=== PATIENT | male | born 1985 | race Caucasian/White ===

== ENCOUNTER 2020-08-11 19:58 | Inpatient (IN) | payer MEDICAID, SELFPAY ==
[2020-08-11 20:02] VITALS: BP 151/93; PULSE 100; RESP 15; TEMP 37.1; O2SAT 99; BMI 35.9
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
--- NOTE | 2020-08-11 20:32 | ED.PSYCH ---
HPI - Psych General Chief Complaint: Psychiatric Symptoms Stated Complaint: SI Source: patient, family and EMS Mode of arrival: ambulatory Limitations: no limitations History of Present Illness HPI Narrative: Patient presents to ED for SI ideation. Patient went stop taking heroin in [place] since last Wednesday. Patient states he is tired of the drug use and went cold turkey. Patient himself presently denies having any suicidal homicidal thoughts, but when was called she states patient tried to take the keys of his truck so he could drive off the [place]. states patient has been severely depressed due to his addiction to drug use. Patient has strong family history of drug abuse. states patient has had suicidal thoughts in the past but never actually tried to kill himself. She was concerned so she brought patient to the ED. MD complaint: suicidal ideation Related Data Allergies Allergy/AdvReac Type Severity Reaction Status Date / Time No Known Allergies Allergy Unverified 04/18/20 17:17 [No Known Allergies*] Review of Systems Review of Systems: Yes all other systems are reviewed and are negative Constitutional: Constitutional: Reports as per HPI and Reports no additional constitutional complaints Eyes: Eyes: Reports as per HPI and Reports no additional eye complaints ENT: Reports system reviewed and no additional complaints, except as documented and Reports as per HPI Cardiovascular: Cardiovascular: Reports as per HPI and Reports no additional cardiovascular complaints Respiratory: Respiratory: Reports as per HPI and Reports no additional respiratory complaints Gastrointestinal: Gastrointestinal: Reports as per HPI and Reports no additional gastrointestinal complaints Genitourinary: Genitourinary: Reports no additional male genitourinary complaints and Reports as per HPI Musculoskeletal: Musculoskeletal: Reports no additional musculoskeletal complaints and Reports as per HPI Neurologic: Reports system reviewed and no additional complaints, except as documented and Reports as per HPI Psychiatric: Psychiatric: Reports no additional psychiatric complaints and Reports as per HPI PMFSH Social History Social History Alcohol intake: former Smoking Status: Former smoker Smoked in Last 30 Days: No Use of substances other than those prescribed or required for medical reasons: Yes Substance Use Type: Heroin Substance Use Type Other:: PCP Substance Use Frequency: Chronic Longstanding Last Used Substance: Weeks (ago) Any prior treatment program specific to substance use: Yes Advance Directives: No Physical Exam Vital Signs: Vital Signs: Last Vital Signs Temp 97.9 F 08/11/20 22:09 Pulse 80 08/11/20 22:09 Resp 16 08/11/20 22:09 BP 130/76 08/11/20 22:09 Pulse Ox 100 08/11/20 22:09 Body Mass Index 35.9 Const: General: cooperative, healthy appearing, comfortable, no acute distress, well developed, alert, awake and Physically active Orientation/consciousness: patient oriented x3 HENMT: Head: Yes normal to inspection and Yes No palpable skull fracture present Eyes: General: appearance normal, both eyes and all related structures Neck: Neck: Yes normal visual inspection, Yes full ROM, Yes no lymphadenopathy, Yes no meningeal signs, Yes trachea midline, Yes supple and No tender Chest: Chest palpation & inspection: normal inspection of the chest and normal palpation of entire chest wall Resp: Effort & Inspection: normal respiratory effort and able to speak in complete sentences Auscultation: clear to auscultation bilaterally Cardio: Jugular venous distension: no JVD Heart sounds: S1 normal heart sound present and S2 normal heart sound present GI: Inspection: Yes normal to inspection and No abdominal wall ecchymosis Palpation (GI): Soft to palpation, not firm, nontender and no guarding : General: No CVA tenderness and Yes no CVA tenderness Back/Spine/Pelvis: Back: no CVA tenderness, No CVA tenderness and No back tenderness Skin: General skin exam: no rashes or lesions noted and elasticity normal Neuro: General: patient oriented x3, no meningeal signs and CN's II-XI intact bilaterally Cranial nerves: Yes CN's II-XII intact bilaterally Extrem: General: Yes normal to inspection and Yes full ROM Psych: Other: Patient is depressed Appearance: grossly normal and not disheveled Course Course Course Narrative: Spoke with patient's was very concerned about her 's safety. She feels she that he wanted to commit suicide at due to his addiction to drugs. Plan is to do labs and [facility] crisis evaluation. Reevaluation(s) Reevaluation #1: Patient medically cleared. Patient seen and evaluated by [facility]. Patient is Section 12 for bed search. Time: 01:31 MDM - Psych MDM Narrative Medical decision making narrative: Depression Restraints Face to Face Assessment: Face to Face Assessment: Current Situation: After assessment of the patient, a review of the pertinent medical record and a discussion with nursing staff, I feel the patient requires a restrain intervention. Reaction To: [] Medical Condition: [] Behavioral State: [] Continued Need: [] Lab Data Result diagrams: 08/11/20 21:12 08/11/20 21:12 Labs: Lab Results 08/11/20 08/11/20 08/11/20 Range/Units 21:12 21:12 21:12 WBC 12.9 H (4.8-10.8) X10*3/uL RBC 5.53 (4.60-5.80) X10*6/uL Hgb 15.0 (14.0-18.0) g/dl Hct 46.0 (42-52) % MCV 83.2 (80-98) fL MCH 27.1 (27.0-33.0) pg MCHC 32.6 (31.0-36.0) g/dl RDW 13.4 (11.0-16.0) % Plt Count 345 (160-400) X10*3/uL MPV 8.7 L (9.4-12.4) fL Immature Gran % (Auto) 0.6 H (0.0-0.4) % Neut % (Auto) 66.9 (45-73) % Lymph % (Auto) 24.1 (20-40) % [place] % (Auto) 7.8 (2-11) % Eos % (Auto) 0.2 (0-4) % Baso % (Auto) 0.4 (0-2) % Lymph # (Auto) 3.1 (1.2-4.9) X10*3/uL [place] # (Auto) 1.0 (0.1-1.2) X10*3/uL Eos # (Auto) 0.0 (0.0-0.4) X10*3/uL Baso # (Auto) 0.1 (0.0-0.2) X10*3/uL Abs Immat Gran (auto) 0.08 H (0.00-0.03) X10*3/uL Absolute Neuts (auto) 8.6 H (2.0-8.3) X10*3/uL Absolute Nucleated RBC 0.000 (0.0-0.012) X10*3/uL Nucleated RBC % (auto) 0.0 (0.0-0.2) /100WBC Sodium 145 (135-145) mmol/L Potassium 4.3 (3.3-5.1) mmol/l Chloride 106 (96-108) mmol/L Carbon Dioxide 26 (22-29) mmol/L Anion Gap 17 (12-20) BUN 19 H (9-16) mg/dL Creatinine 1.12 (0.5-1.4) mg/dL Estim Creat Clear Calc 116.0 Estimated GFR > 60 Random Glucose 99 (60-115) mg/dL Calcium 9.6 (8.4-10.2) mg/dL Total Bilirubin 0.6 (0.0-1.0) mg/dL Direct Bilirubin 0.2 (0.0-0.5) mg/dL AST 20 (5-37) U/L ALT 32 (0-40) U/L Alkaline Phosphatase 119 H (39-117) U/L Total Protein 7.6 (6.5-8.0) g/dL Albumin 4.9 (3.5-5.0) g/dL Urine Opiates Screen Not Detected (Not Detect) Ur Barbiturates Screen Not Detected (Not Detect) Ur Phencyclidine Scrn POSITIVE H (Not Detect) Ur Amphetamines Screen Not Detected (Not Detect) U Benzodiazepines Scrn Not Detected (Not Detect) Urine Cocaine Screen Not Detected (Not Detect) U Marijuana (THC) Screen POSITIVE H (Not Detect) Discharge Plan Discharge Clinical Impression: Depression
[2020-08-11 21:26] LABS: Basophils Absolute Auto 0.1 X10*3/uL (0.0-0.2); Basophils Percent Auto 0.4 % (0-2); Eosinophils Percent Auto 0.2 % (0-4); Imm Gran Abs Auto 0.08 X10*3/uL (0.00-0.03); Imm Gran Pct Auto 0.6 % (0.0-0.4); Lymphocytes Absolute Auto 3.1 X10*3/uL (1.2-4.9); Lymphocytes Percent Auto 24.1 % (20-40); Mean Corpuscular HGB Conc 32.6 g/dl (31.0-36.0); Mean Corpuscular Hemoglobin 27.1 pg (27.0-33.0); Mean Corpuscular Volume 83.2 fL (80-98); Mean Platelet Volume 8.7 fL (9.4-12.4); Monocytes Percent Auto 7.8 % (2-11); Neutrophils Absolute Auto 8.6 X10*3/uL (2.0-8.3); Neutrophils Percent Auto 66.9 % (45-73); Platelet Count 345 X10*3/uL (160-400); Red Blood Count 5.53 X10*6/uL (4.60-5.80); Red Cell Distribution Width 13.4 % (11.0-16.0); White Blood Count 12.9 X10*3/uL (4.8-10.8)
[2020-08-11 21:27] LABS: MANUAL DIFF FLAG NO
[2020-08-11 21:48] LABS: Alanine Aminotransferase 32 U/L (0-40); Albumin Level 4.9 g/dL (3.5-5.0); Alkaline Phosphatase 119 U/L (39-117); Amphetamine Screen Urine Not Detected (Not Detect); Anion Gap 17 (12-20); Aspartate Amino Transferase 20 U/L (5-37); Barbiturates, Urine Not Detected (Not Detect); Benzodiazepines Screen Urine Not Detected (Not Detect); Bilirubin Direct 0.2 mg/dL (0.0-0.5); Bilirubin Total 0.6 mg/dL (0.0-1.0); Blood Urea Nitrogen 19 mg/dL (9-16); Calcium 9.6 mg/dL (8.4-10.2); Cannabinoid Screen Urine POSITIVE (Not Detect); Carbon Dioxide 26 mmol/L (22-29); Chloride 106 mmol/L (96-108); Cocaine Screen Urine Not Detected (Not Detect); Estimated Glomerular Filt Rate > 60; Glucose Random 99 mg/dL (60-115); Opiate Screen Urine Not Detected (Not Detect); Phencyclidine Screen Urine POSITIVE (Not Detect); Potassium 4.3 mmol/l (3.3-5.1); Sodium 145 mmol/L (135-145); Total Protein 7.6 g/dL (6.5-8.0)
[2020-08-11 22:09] VITALS: BP 130/76; PULSE 80; RESP 16; TEMP 36.6; O2SAT 100
--- NOTE | 2020-08-11 23:23 | PC.NURSE ---
[facility]LER faxed and called. Spoke with Sharri who stated clinician was leaving soon to see the PT.
[2020-08-12] VITALS (7 sets, daily range): BP systolic 109–136; BP diastolic 50–90; PULSE 73–80; RESP 16–20; TEMP 36.5–37; O2SAT 95–97; BMI 35.9
--- NOTE | 2020-08-12 00:17 | PC.NURSE ---
BHN at bed side.
--- NOTE | 2020-08-12 00:36 | PC.NURSE ---
PT stated that he cut out heroin cold turkey one week ago. Now exhibiting withdrawal symptoms but does not want medication to treat it. PT is a being monitored with [facility]. Provider notified.
--- NOTE | 2020-08-12 01:59 | PC.NURSE ---
PT is dry heaving and spitting out small amounts of bile and saliva. PT offered zofran for nausea but refused because he does not want any form of medications to help with detox .
--- NOTE | 2020-08-12 05:26 | PC.NURSE ---
PT is unable to sleep. Continues to have NVD. Appears to be in severe discomfort. Still refusing comfort meds. Continues to insist that he needs a line for saline infusion.
--- NOTE | 2020-08-12 07:16 | PC.NURSE ---
Report received from NAINA Forte. Pt resting, resp unlabored.
--- NOTE | 2020-08-12 07:50 | PC.NURSE ---
Pt awake, alert. Continues to report nausea. Declining medications for it, stating that he felt he was just swapping one drug for another.
--- NOTE | 2020-08-12 08:11 | PC.NURSE ---
A Emma aware pt nausea vomitting
[2020-08-12] MEDS: 0.9 % Sodium Chloride 1,000 ML 999 ML IV (08:36)
--- NOTE | 2020-08-12 08:44 | PC.NURSE ---
IV access established by NAINA Zaidi. Fluids running as requested by pt.
--- NOTE | 2020-08-12 09:36 | PC.NURSE ---
IV completed, pt continues w/ chills, diarrhea but does not want any medications. Will reassess w/ pt in an hour. Pt reports he has not vomited since last night.
--- NOTE | 2020-08-12 10:20 | PC.NURSE ---
No further vomiting. IV removed.
--- NOTE | 2020-08-12 11:16 | PC.NURSE ---
Pt pleasant, denies any further vomiting, reports a few episodes of diarrhea.
[2020-08-12 11:36] LABS: COVID-19 Test Negative (Negative)
--- NOTE | 2020-08-12 13:05 | PC.NURSE ---
pt awake, eating lunch, states he is feeling much better.
--- NOTE | 2020-08-12 15:34 | PC.NURSE ---
Report given to NAINA fu on M5
--- NOTE | 2020-08-12 16:35 | PC.NURSE ---
Care team in to transfer pt to M5. Pt alert, in agreement w/ plan. No concerns reported.
--- NOTE | 2020-08-12 17:23 | PC.ADMIT ---
Pt is a 35 year old male who presented to [facility] with his on 08/12/2020. Pt had make suicidal statements, reporting that he wants to be done with himself . Pt made a plan that he would kill himself with his truck. Pt stated that he does not want to live like this anymore. Pt reports that he has been having poor appetite and sleep due to Heroin withdrawals, however, sleep and eating are improving. Pt began taking PCP when he got off of Heroin 6 days ago. Pt said he began to hallucinate and act out. He told his he needed help or he was going to end up . Pt feels as if there is no help out there for his addiction and he has been struggling as an addict for way to long . Pt does not have a primary care provider, therapist, or pharmacy. He has no known allergies. Pt says he will not take any medication because that is supplementing one drug for another . Pt appears calm and cooperative upon admission. Pt is alert and oriented x4. Pt denies current SI/HI. Pt declines auditory and visual hallucinations. Pt says he will reach out to staff if he is having thoughts of harming himself or others. He is a former smoker. Pt is aware of unit policies. Pt reported that he will only eat vegetables and fruit while he is here unless the food is organic. Pt has been oriented to the unit and has been assigned to room 516-1. Pt is currently sleeping in his room.
[2020-08-13] MEDS: Magnesium Hydrox/Alum Hydrox 30 ML ORAL.SUSP PO ×2 (03:37→09:29)
[2020-08-13 06:15] VITALS: BP 118/71; PULSE 72; RESP 18; TEMP 36.9; O2SAT 96
[2020-08-13 08:58] LABS: Alanine Aminotransferase 33 U/L (0-40); Albumin Level 4.7 g/dL (3.5-5.0); Alkaline Phosphatase 107 U/L (39-117); Anion Gap 15 (12-20); Aspartate Amino Transferase 20 U/L (5-37); Bilirubin Total 0.7 mg/dL (0.0-1.0); Blood Urea Nitrogen 21 mg/dL (9-16); Calcium 9.2 mg/dL (8.4-10.2); Carbon Dioxide 25 mmol/L (22-29); Chloride 108 mmol/L (96-108); Cholesterol 182 mg/dL; Creatinine Clr Calc Pharmacy 121.5; Estimated Glomerular Filt Rate > 60; Glucose Fasting 104 mg/dL (60-99); HDL Cholesterol 38 mg/dL; LDL Cholesterol Calculated 123 mg/dl; Potassium 4.1 mmol/l (3.3-5.1); Sodium 144 mmol/L (135-145); Total Protein 7.3 g/dL (6.5-8.0); Triglycerides 109 mg/dL
[2020-08-13 09:20] LABS: TSH reflex Free T4 0.69 mIU/mL (0.32-4.0)
[2020-08-13 09:29] LABS: Folate 18.6 ng/mL (> or = 4.0); Vitamin B12 571 pg/mL (200-900)
[2020-08-13] MEDS: hydrOXYzine HCL 25 MG TABLET PO (10:37)
[2020-08-13 11:50] VITALS: BP 118/71; PULSE 72
[2020-08-13] MEDS: cloNIDine HCL 0.1 MG TABLET PO ×3 (11:50→20:00)
--- NOTE | 2020-08-13 12:58 | MHC.RECOVRN ---
35 year old male presented to [facility] on 08/11/20 with who stated pt wants ?to be done with himself? and reported pt had plans to drive off a [place] in his truck. Pt admitted to for SI, depression, substance use. T/w met with pt to discuss substance use. Pt states ?I do heroin..or fentanyl now.? Pt states use began 16 years ago and has always been nasal. Pt states ?I?m scared of needles.? Pt reports ?I can?t sleep. I can?t eat. If I can just get something to get over this hump I think I will be good.? Pt reports anxiety is the trigger for use and is hopeful in regards to obtaining a therapist and psychiatrist. Pt denies interest in Suboxone, methadone, naltrexone. Pt states ?I?ve been on Suboxone and methadone. I still used. They don?t work.? When asked about plan for recovery, pt states ?The plan was my truck.? T/w continued to ask if that was still the plan, pt replied ?No.? 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 Pt reports and mom are very supportive of pts recovery and also states ?I have the best friends.? Pt reports all supports do not use substances. Pt received clonidine at 1150 and hydroxyzine at 1037. T/w encouraged pt to give the medications a chance to help reduce anxiety. Pt reports ?I want something stronger. They aren?t working.? T/w informed pt that the provider will be made aware. T/w discussed case with Dr. Steward. Will continue to monitor.
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
[2020-08-13 16:00] VITALS: BP 118/62; PULSE 83; TEMP 36.9
[2020-08-13] MEDS: QUEtiapine Fumarate 50 MG TABLET PO ×2 (16:18→22:13)
[2020-08-13 16:19] VITALS: BP 118/62; PULSE 83
[2020-08-13] MEDS: hydrOXYzine HCL 25 MG TABLET 50 MG PO ×2 (16:19→22:14)
[2020-08-13] MEDS: Loperamide HCl 2 MG CAPSULE PO ×2 (16:19→21:13)
[2020-08-13 20:00] VITALS: BP 128/76; PULSE 86; TEMP 36.4
[2020-08-13] MEDS: traZODone HCL 50 MG TABLET PO (22:13)
[2020-08-14] MEDS: Loperamide HCl 2 MG CAPSULE PO ×2 (04:53→14:37)
[2020-08-14] MEDS: hydrOXYzine HCL 25 MG TABLET 50 MG PO ×2 (04:53→10:18)
[2020-08-14] MEDS: QUEtiapine Fumarate 50 MG TABLET PO ×2 (04:53→10:18)
[2020-08-14 05:00] VITALS: BP 127/77; PULSE 148; RESP 18; TEMP 36.6; O2SAT 99
--- NOTE | 2020-08-14 06:06 | PC.NURSE ---
0600: HR =86 MANUALLY, DOWN FROM 148 AT 0500 BEFORE MEDICATION GIVEN.
[2020-08-14 07:06] VITALS: PULSE 86; RESP 18
--- NOTE | 2020-08-14 09:06 | P.PNPSI_ITS ---
Subjective Subjective Date of Service: 08/14/20 Reason For Visit: SI, depression substance abuse Subjective Notes: Carter Warning and Conditional Voluntary Interim History: Pt seen with clinician Douglas. Pt initially asking to be discharged today. He denies suicidal and homicidal ideation. He initially presented as superficially cooperative and minimizing effects of ongoing substance use. We discussed concerns in terms of safety in that pt although with long hx of substance use feeling more hopeless/helpless, and depressed. We discussed concerns that has in terms of increased depression and suicidal ideation. Pt reports he will not attend substance use treatment but open to psychiatric treatment. He denies VH/AH. Medication Compliance: Yes Side effects from medications: Yes (ortho HOTN with clonidine) Attending Groups: No Review of Systems Cardiovascular: Reports no additional cardiovascular complaints Respiratory: Reports no additional respiratory complaints Gastrointestinal: Reports diarrhea Reports system reviewed and no additional complaints, except as documented and Reports as per HPI Psychiatric: Reports depression and Reports hopelessness Hematologic/Lymphatic: Reports no additional hematologic/lymphatic complaints Mental Status Exam Mental Status Exam Narrative: Appearance:casually groomed, fair hygiene, in NAD Behavior:initially superficially cooperative but increasingly engaging more. Psychomotor: no agitation or retardation noted Speech: clear, normal rate/rythm/volume, spontaneous Mood less depressed Affect: flat, but brightens at times AH/VH: none Delusions: none Insight/judgment: fair-poor Memory/cog: alert, oriented x 3. grossly intact to conversational testing. Diagnostics Vital Signs (24Hr): Vital Signs - 24 hr 08/13/20 11:50 08/13/20 16:00 08/13/20 16:19 Temperature 98.5 F Pulse Rate 72 83 83 Respiratory Rate Blood Pressure 118/71 118/62 118/62 Pulse Oximetry 08/13/20 20:00 08/14/20 05:00 08/14/20 07:06 Temperature 97.5 F 97.8 F Pulse Rate 86 148 H 86 Respiratory Rate 18 18 Blood Pressure 128/76 127/77 Pulse Oximetry 99 Body Mass Index 35.9 Labs Results: 08/11/20 21:12 08/13/20 07:58 Labs: Laboratory Results - last 48 hr 08/12/20 08/13/20 08/13/20 11:03 07:58 07:58 Sodium 144 Potassium 4.1 Chloride 108 Carbon Dioxide 25 Anion Gap 15 BUN 21 H Creatinine 1.07 Estim Creat Clear Calc 121.5 Estimated GFR > 60 Fasting Glucose 104 H Calcium 9.2 Total Bilirubin 0.7 AST 20 ALT 33 Alkaline Phosphatase 107 Total Protein 7.3 Albumin 4.7 Triglycerides 109 Cholesterol 182 LDL Cholesterol, Calc 123 HDL Cholesterol 38 Vitamin B12 571 Folate 18.6 TSH 0.69 COVID-19 ([facility]) Negative COVID-19 Clin Com See Note Medications Medications Current Medications Generic Name Dose Route Start Last Admin Trade Name Freq PRN Reason Stop Dose Admin Acetaminophen 650 mg 08/12/20 16:16 Acetaminophen 325 Mg Tablet PO Q6H PRN Headache/Pain Mild Scale (1-3) Al Hydroxide/Mg Hydroxide 30 ml 08/12/20 16:16 08/13/20 09:29 Magnesium Hydrox/Alum Hydrox 30 Ml Oral.Susp PO 30 ml Q6H PRN Administration Heartburn/Nausea Clonidine HCl 0.1 mg 08/13/20 16:15 08/13/20 20:00 Clonidine Hcl 0.1 Mg Tablet PO 0.1 mg TID RUBEN Administration Protocol Hydroxyzine HCl 50 mg 08/13/20 16:05 08/14/20 04:53 Hydroxyzine Hcl 25 Mg Tablet PO 50 mg Q6H PRN Administration Anxiety Loperamide HCl 2 mg 08/13/20 16:02 08/14/20 04:53 Loperamide Hcl 2 Mg Capsule PO 2 mg Q4H PRN Administration Diarrhea Magnesium Hydroxide 30 ml 08/12/20 16:16 Milk Of Magnesia 30 Ml Oral.Susp PO DAILY PRN Constipation Quetiapine Fumarate 50 mg 08/13/20 16:05 08/14/20 04:53 Quetiapine Fumarate 50 Mg Tablet PO 50 mg Q6H PRN Administration agitation Trazodone HCl 50 mg 08/12/20 21:00 08/13/20 22:13 Trazodone Hcl 50 Mg Tablet PO 50 mg BEDTIME PRN Administration Insomnia Allergies Allergies Allergy/AdvReac Type Severity Reaction Status Date / Time No Known Allergies Allergy Unverified 04/18/20 17:17 [No Known Allergies*] Assessment & Plan Assessment & Plan (1) Opioid abuse with intoxication: Status: Acute Code(s): F11.129 - Opioid abuse with intoxication, unspecified Assessment and Plan: 1. continue prn meds for withdrawal s/s. 2. continue to engage pt in aftercare plan. Pt declines MAT at this time. (2) Depression: Qualifiers: Active/Remission status: currently active Depression Type: major depressive disorder Major depression episode severity: moderate Major depression recurrence: recurrent Qualified Code(s): F33.1 - Major depressive disorder, recurrent, moderate Status: Acute Code(s): F32.9 - Major depressive disorder, single episode, unspecified Assessment and Plan: 1. Pt declined antidepressant medication. He agreed to OP referral and organ recovery coordinator. Greater than 50% of the session was spent on counseling and/or coordination of care Patient educated on: diagnosis, medication risk/benefits, substance abuse, therapeutic strategies and medical condition Informed Consent: understands Reason for contiued inpatient stay Substantial Risk for: harm to self
[2020-08-14 09:20] VITALS: BP 127/77; PULSE 86
[2020-08-14] MEDS: cloNIDine HCL 0.1 MG TABLET PO (09:20)
--- NOTE | 2020-08-14 14:37 | PM.PSYDC ---
DS: Providers Provider Date of Service: 08/14/20 Date of admission: 08/12/20 16:09 Primary care physician: Unknown Physician Consults: 08/12/20 16:16 Addiction Medicine Routine Consulting Provider: Jackelyn Kiran Reason for consultation: opiate use dx pcp use Has provider been notified: No DS: Diagnosis Discharge Diagnosis (1) Opioid abuse with intoxication: Status: Acute (2) Depression: Status: Acute Discharge Plan Discharge Anticipated Discharge Date/Time: 08/14/20 14:53 Patient Disposition: Home, Self-Care Referrals: JACKELIN TOLLIVER [Other] - 08/20/20 3:00 am SAMPSON POTTER [Other] - 09/12/20 3:00 am HELIO GALLARDO [Other] KRISTA ABRAMS [Other] Physician,Unknown [Primary Care Provider] - Diet: regular diet Activity on Discharge: As tolerated Stand Alone Forms: Community Support Visit Report Forms: Patient Portal Discharge page Care Plan Goals: Pt provided with list of resources should he changes his mind and agrees to substance use treatment. Health Concerns: Continue regular preventive care with PCP Plan of Treatment: Follow up with referrals for OP psychiatric treatment and recovery assistant. Mental Status Exam Mental Status Exam Narrative: Appearance:casually groomed, fair hygiene, in NAD Behavior:initially superficially cooperative but increasingly engaging more. Psychomotor: no agitation or retardation noted Speech: clear, normal rate/rythm/volume, spontaneous Mood less depressed Affect: flat, but brightens at times AH/VH: none Delusions: none Insight/judgment: fair-poor Memory/cog: alert, oriented x 3. grossly intact to conversational testing. Patient Appearance: Unkempt Patient Orientation: Person, Place, Time and Situation Level of Consciousness: Awake Patient Behavior: Cooperative and Good Eye Contact Mood Description: Depressed and Anxious Affect Description: Depressed and Anxious Patient Cognition Impaired: No Ability to Follow Directions: Excellent Speech Pattern: Clear and Spontaneous Speech (clear. normal rate/rhythm/volume) Memory Description: Intact (grossly intact to conversational testing.) Data Data Completed and Pending Completed studies during hospitalization [Text1]: 08/11/20 08/11/20 08/11/20 21:12 21:12 21:12 WBC 12.9 H RBC 5.53 Hgb 15.0 Hct 46.0 MCV 83.2 MCH 27.1 MCHC 32.6 RDW 13.4 Plt Count 345 MPV 8.7 L Immature Gran % (Auto) 0.6 H Neut % (Auto) 66.9 Lymph % (Auto) 24.1 Clinch % (Auto) 7.8 Eos % (Auto) 0.2 Baso % (Auto) 0.4 Lymph # (Auto) 3.1 Clinch # (Auto) 1.0 Eos # (Auto) 0.0 Baso # (Auto) 0.1 Abs Immat Gran (auto) 0.08 H Absolute Neuts (auto) 8.6 H Absolute Nucleated RBC 0.000 Nucleated RBC % (auto) 0.0 Sodium 145 Potassium 4.3 Chloride 106 Carbon Dioxide 26 Anion Gap 17 BUN 19 H Creatinine 1.12 Estim Creat Clear Calc 116.0 Estimated GFR > 60 Random Glucose 99 Fasting Glucose Calcium 9.6 Total Bilirubin 0.6 Direct Bilirubin 0.2 AST 20 ALT 32 Alkaline Phosphatase 119 H Total Protein 7.6 Albumin 4.9 Triglycerides Cholesterol LDL Cholesterol, Calc HDL Cholesterol Vitamin B12 Folate TSH Urine Opiates Screen Not Detected Ur Barbiturates Screen Not Detected Ur Phencyclidine Scrn POSITIVE H Ur Amphetamines Screen Not Detected U Benzodiazepines Scrn Not Detected Urine Cocaine Screen Not Detected U Marijuana (THC) Screen POSITIVE H COVID-19 ([facility]) COVID-19 Clin Com 08/12/20 08/13/20 08/13/20 11:03 07:58 07:58 WBC RBC Hgb Hct MCV MCH MCHC RDW Plt Count MPV Immature Gran % (Auto) Neut % (Auto) Lymph % (Auto) Cl[place] % (Auto) Eos % (Auto) Baso % (Auto) Lymph # (Auto) Clinch # (Auto) Eos # (Auto) Baso # (Auto) Abs Immat Gran (auto) Absolute Neuts (auto) Absolute Nucleated RBC Nucleated RBC % (auto) Sodium 144 Potassium 4.1 Chloride 108 Carbon Dioxide 25 Anion Gap 15 BUN 21 H Creatinine 1.07 Estim Creat Clear Calc 121.5 Estimated GFR > 60 Random Glucose Fasting Glucose 104 H Calcium 9.2 Total Bilirubin 0.7 Direct Bilirubin AST 20 ALT 33 Alkaline Phosphatase 107 Total Protein 7.3 Albumin 4.7 Triglycerides 109 Cholesterol 182 LDL Cholesterol, Calc 123 HDL Cholesterol 38 Vitamin B12 571 Folate 18.6 TSH 0.69 Urine Opiates Screen Ur Barbiturates Screen Ur Phencyclidine Scrn Ur Amphetamines Screen U Benzodiazepines Scrn Urine Cocaine Screen U Marijuana (THC) Screen COVID-19 ([facility]) Negative COVID-19 Clin Com See Note DS: Summary Hospital Course Hospital Course: This is the first inpatient psychiatric admission for Mr. Pillai who is a 35 year-old male with long history of heroin use. Pt was brought to [facility] ED by after he reported suicidal ideation with plan to drive truck off bridge. On the unit, Mr. Pillai presented as cooperative, tearful at times when talking about his family. He reported increased symptoms of depression, feeling hopeless/helpless for about one month or so. He reports failed attempts to stop or decrease using heroin on his own and this triggering suicidal thoughts. Pt reports that he has been able to work, provide for his family even when using heroin. He reports that to some extend he thinks he can continue doing so but worries that if that is not the case he may lose the support of his and children. He denied VH/AH. He did not appear to be responding to internal stimuli at any point during this admission. He appeared to have experienced brief AH when he used PCP. denies any hx of psychosis. No history of suicide attempts. We discussed at length referrals for substance use treatment programs including those providing MAT. He met with aircraft launch and recovery technician from suboxone clinic but he once again declined referrals for MAT. He agreed to be referred to OP psychiatric therapy and to recovery assistant. We discussed risks, benefits and alternative treatment options. We discussed risks, benefits and alternative treatment options. He was offered to start an antidepressant but he declined. He was tried on clonidine for anxiety but pt reported that it was not effective and it also caused orthostatic HOTN. His affect gradually brighten. He adamantly denied suicidal or homicidal ideation. He identify his children and as protective factors. Collateral information was gathered from his who denied safety concerns in terms of suicidal or homicidal ideation. She expressed concern about patient not open to continue substance use treatment. We discussed options of family petitioning for section 35. reports patient has never had an accidental overdose and he currently does not have medical complications secondary to his heroin use. We educated patient and on need to carry Narcan. Time spent discussing smoking cessation with patient: 3 to 10 minutes Status at Discharge Cognitive/behavioral status at discharge: Pt denied suicidal or homicidal ideation. He declined medication for depression and asked for short inpatient admission in part due to craving heroin. However, he was not suicidal or homicidal at time of discharge. He is increasingly more future oriented. At least in agreement to follow up with psychiatric treatment and recovery assistant. He does have chronic risks of hurting himself given ongoing substance use. Functional status at discharge: independent ambulation Overall status at discharge: patient is progressing back to baseline Time Spent with Patient Time attestation: Total time spent providing and/or coordinating discharge services: Time spent: Greater than 30 minutes
[2020-08-14] MEDS: Naloxone HCl Nasal TAKE HOME 4 MG SPRAY NOSTRILALT (15:34)
== END 2020-08-14 17:46 | disposition home or self-care (01) | DRG 754 ==
LOC: HO.ED 08-12 15:14 → HO.PM5 08-12 16:16
PROVIDERS: Nurse Practitioner Primary Care; Physician Assistant; Admitting Provider Psychiatry & Neurology Psychiatry; Emergency Provider Emergency Medicine; Visit Provider Psychiatry & Neurology Psychiatry
DX: F32.9 Major depressive disorder, single episode, unspecified (principal); R45.851 Suicidal ideations; F11.129 Opioid abuse with intoxication, unspecified; Z20.828 Contact with and (suspected) exposure to other viral communicable diseases; Z87.891 Personal history of nicotine dependence
CPT/HCPCS: 36415; 80053; 80061; 80076; 80307; 82248; 82607; 82746; 84443; 85025; 87635; 90792; 96361; 96374; 99232; 99239; 99285

== ENCOUNTER 2020-08-20 00:11 | Emergency (ER) | payer OTHER, MEDICAID, SELFPAY ==
[2020-08-20 00:15] VITALS: BP 129/86; PULSE 104; RESP 17; TEMP 36.7; O2SAT 100
[2020-08-20 01:29] VITALS: BP 154/82; PULSE 84; RESP 15; TEMP 37; O2SAT 96; BMI 37.3
[2020-08-20 02:18] LABS: Basophils Percent Auto 0.3 % (0-2); Eosinophils Absolute Auto 0.1 X10*3/uL (0.0-0.4); Eosinophils Percent Auto 1.9 % (0-4); Hematocrit 35.5 % (42-52); Hemoglobin 11.5 g/dl (14.0-18.0); Imm Gran Abs Auto 0.01 X10*3/uL (0.00-0.03); Imm Gran Pct Auto 0.2 % (0.0-0.4); Lymphocytes Absolute Auto 2.2 X10*3/uL (1.2-4.9); Lymphocytes Percent Auto 34.3 % (20-40); MANUAL DIFF FLAG NO; Mean Corpuscular HGB Conc 32.4 g/dl (31.0-36.0); Mean Corpuscular Hemoglobin 27.3 pg (27.0-33.0); Mean Corpuscular Volume 84.3 fL (80-98); Mean Platelet Volume 8.6 fL (9.4-12.4); Monocytes Absolute Auto 0.5 X10*3/uL (0.1-1.2); Monocytes Percent Auto 8.3 % (2-11); Neutrophils Absolute Auto 3.4 X10*3/uL (2.0-8.3); Platelet Count 286 X10*3/uL (160-400); Red Blood Count 4.21 X10*6/uL (4.60-5.80); Red Cell Distribution Width 13.6 % (11.0-16.0); White Blood Count 6.3 X10*3/uL (4.8-10.8)
--- NOTE | 2020-08-20 02:38 | ED_ITS ---
HPI - Psych General Chief Complaint: ETOH/Substance Use Stated Complaint: Crisis Time Seen by Provider: 08/20/20 02:38 Source: patient Mode of arrival: ambulatory History of Present Illness HPI Narrative: This is a 30 his see wanting to exert physical harm. Patient states that has been drinking this evening as well as inject substances, and when he heard that the boyfriend of a prior family member was questionably causing harm to his niece and nephew this prompted his statements. He says his from demand as she was concerned and knew that he for go looking for this individual. Otherwise, patient denies any symptoms at this time and states that he was upset at the time but it was situational. Related Data Previous Rx's Medication Instructions Recorded trazodone 50 mg PO BEDTIME 15 Days #15 tab 08/15/20 Allergies Allergy/AdvReac Type Severity Reaction Status Date / Time No Known Allergies Allergy Unverified 04/18/20 17:17 [No Known Allergies*] Review of Systems 2 Review of Systems: Pertinent positives and negatives as stated HPI and review of systems otherwise negative. [facility] Past Medical History Source: nursing notes reviewed Medical History Substance abuse Surgical History No history of previous surgery Social History Social History Household Members: Spouse and Children Housing: House Alcohol intake: current Alcohol intake frequency: a few times a week Alcohol type: beer Smoking Status: Unknown if ever smoked Tobacco Type: E-Cigarette Second Hand Smoke Exposure: No Use of substances other than those prescribed or required for medical reasons: Yes Substance Use Type: Crack/Cocaine and Heroin Substance Use Frequency: Chronic Longstanding Last Used Substance: Just Prior to Admission Any prior treatment program specific to substance use: Yes Advance Directives: No service: No Sexual orientation: Straight/Heterosexual Physical Exam Vital Signs: Vital Signs: Last Vital Signs Temp 98.6 F 08/20/20 01:29 Pulse 84 08/20/20 01:29 Resp 15 08/20/20 06:00 BP 154/82 H 08/20/20 01:29 Pulse Ox 96 08/20/20 01:29 Body Mass Index 37.3 VITAL SIGNS: Reviewed. GENERAL: Well developed, well nourished, in no acute distress. HEAD: Normocephalic/atraumatic, EYES: PERRLA, EOMI EARS: Ext canals without abnormality NOSE: Nares patent bilateral OROPHARYNX: no oral lesions noted, posterior pharynx clear NECK: Supple, no adenopathy LUNGS: Normal breath sounds. SpO2<96> CARDIOVASCULAR: Regular rate and rhythm without noted murmurs ABDOMEN: Soft, non-tender, non-distended with bowel sounds. NEUROLOGIC: Alert and oriented x 4. PSYCH: Normal affect, logical thought process, no SI Course Course Course Narrative: This is a 35-year-old male with history of presentation consistent with alcohol substance use as well as situational aggressive statements made. Review of investigations significant for polysubstances and the noted anemia may be secondary to drugs used as there is no history or evidence of bleeding. Patient is otherwise cleared for further evaluation by N for HI. Signed out to Dr Bauer: f/u [facility] evaluation. MDM - Psych Restraints Face to Face Assessment: Face to Face Assessment: Current Situation: After assessment of the patient, a review of the pertinent medical record and a discussion with nursing staff, I feel the patient requires a restrain interve ntion. Reaction To: [] Medical Condition: [] Behavioral State: [] Continued Need: [] Lab Data Result diagrams: 08/20/20 02:12 08/20/20 02:12 Labs: Lab Results 08/20/20 08/20/20 08/20/20 Range/Units 02:12 02:12 02:12 WBC 6.3 (4.8-10.8) X10*3/uL RBC 4.21 L D (4.60-5.80) X10*6/uL Hgb 11.5 L D (14.0-18.0) g/dl Hct 35.5 L D (42-52) % MCV 84.3 (80-98) fL MCH 27.3 (27.0-33.0) pg MCHC 32.4 (31.0-36.0) g/dl RDW 13.6 (11.0-16.0) % Plt Count 286 (160-400) X10*3/uL MPV 8.6 L (9.4-12.4) fL Immature Gran % (Auto) 0.2 (0.0-0.4) % Neut % (Auto) 55.0 (45-73) % Lymph % (Auto) 34.3 (20-40) % [place] % (Auto) 8.3 (2-11) % Eos % (Auto) 1.9 (0-4) % Baso % (Auto) 0.3 (0-2) % Lymph # (Auto) 2.2 (1.2-4.9) X10*3/uL [place] # (Auto) 0.5 (0.1-1.2) X10*3/uL Eos # (Auto) 0.1 (0.0-0.4) X10*3/uL Baso # (Auto) 0.0 (0.0-0.2) X10*3/uL Abs Immat Gran (auto) 0.01 (0.00-0.03) X10*3/uL Absolute Neuts (auto) 3.4 (2.0-8.3) X10*3/uL Absolute Nucleated RBC 0.000 (0.0-0.012) X10*3/uL Nucleated RBC % (auto) 0.0 (0.0-0.2) /100WBC Sodium 139 (135-145) mmol/L Potassium 4.1 (3.3-5.1) mmol/l Chloride 103 (96-108) mmol/L Carbon Dioxide 28 (22-29) mmol/L Anion Gap 12 (12-20) BUN 12 (9-16) mg/dL Creatinine 0.78 (0.5-1.4) mg/dL Estim Creat Clear Calc 170.0 Estimated GFR > 60 Random Glucose 95 (60-115) mg/dL Calcium 8.4 D (8.4-10.2) mg/dL Urine Opiates Screen (Not Detect) Ur Barbiturates Screen (Not Detect) Ur Phencyclidine Scrn (Not Detect) Ur Amphetamines Screen (Not Detect) U Benzodiazepines Scrn (Not Detect) Urine Cocaine Screen (Not Detect) U Marijuana (THC) Screen (Not Detect) Ethyl Alcohol < 10 mg/dL 08/20/20 Range/Units 07:33 WBC (4.8-10.8) X10*3/uL RBC (4.60-5.80) X10*6/uL Hgb (14.0-18.0) g/dl Hct (42-52) % MCV (80-98) fL MCH (27.0-33.0) pg MCHC (31.0-36.0) g/dl RDW (11.0-16.0) % Plt Count (160-400) X10*3/uL MPV (9.4-12.4) fL Immature Gran % (Auto) (0.0-0.4) % Neut % (Auto) (45-73) % Lymph % (Auto) (20-40) % [place] % (Auto) (2-11) % Eos % (Auto) (0-4) % Baso % (Auto) (0-2) % Lymph # (Auto) (1.2-4.9) X10*3/uL [place] # (Auto) (0.1-1.2) X10*3/uL Eos # (Auto) (0.0-0.4) X10*3/uL Baso # (Auto) (0.0-0.2) X10*3/uL Abs Immat Gran (auto) (0.00-0.03) X10*3/uL Absolute Neuts (auto) (2.0-8.3) X10*3/uL Absolute Nucleated RBC (0.0-0.012) X10*3/uL Nucleated RBC % (auto) (0.0-0.2) /100WBC Sodium (135-145) mmol/L Potassium (3.3-5.1) mmol/l Chloride (96-108) mmol/L Carbon Dioxide (22-29) mmol/L Anion Gap (12-20) BUN (9-16) mg/dL Creatinine (0.5-1.4) mg/dL Estim Creat Clear Calc Estimated GFR Random Glucose (60-115) mg/dL Calcium (8.4-10.2) mg/dL Urine Opiates Screen Not Detected (Not Detect) Ur Barbiturates Screen Not Detected (Not Detect) Ur Phencyclidine Scrn POSITIVE H (Not Detect) Ur Amphetamines Screen Not Detected (Not Detect) U Benzodiazepines Scrn POSITIVE H (Not Detect) Urine Cocaine Screen POSITIVE H (Not Detect) U Marijuana (THC) Screen POSITIVE H (Not Detect) Ethyl Alcohol mg/dL Discharge Plan Discharge Prescriptions: No Action trazodone 50 mg tablet 50 mg PO BEDTIME 15 Days Qty: 15 RF: 0
[2020-08-20 02:44] LABS: Ethanol < 10 mg/dL
[2020-08-20 02:46] LABS: Anion Gap 12 (12-20); Blood Urea Nitrogen 12 mg/dL (9-16); Calcium 8.4 mg/dL (8.4-10.2); Carbon Dioxide 28 mmol/L (22-29); Chloride 103 mmol/L (96-108); Estimated Glomerular Filt Rate > 60; Glucose Random 95 mg/dL (60-115); Potassium 4.1 mmol/l (3.3-5.1); Sodium 139 mmol/L (135-145)
--- NOTE | 2020-08-20 03:25 | PC.NURSE ---
Patient has been unable to produce a urine sample. MD aware. Blood work has been drawn. Patient is calm and cooperative.
[2020-08-20 06:00] VITALS: RESP 15
--- NOTE | 2020-08-20 06:40 | PC.NURSE ---
[facility]
--- NOTE | 2020-08-20 06:47 | PC.NURSE ---
[facility] confirmed that they received the fax
[2020-08-20 08:15] LABS: Amphetamine Screen Urine Not Detected (Not Detect); Barbiturates, Urine Not Detected (Not Detect); Benzodiazepines Screen Urine POSITIVE (Not Detect); Cannabinoid Screen Urine POSITIVE (Not Detect); Cocaine Screen Urine POSITIVE (Not Detect); Opiate Screen Urine Not Detected (Not Detect); Phencyclidine Screen Urine POSITIVE (Not Detect)
--- NOTE | 2020-08-20 09:15 | PC.NURSE ---
Spoke with pt's , she states she is worried about pt saying what he needs to in order to leave without getting help he needs. Pt's asked that [facility] call her when they arrive to evaluate patient. Will update [facility].
--- NOTE | 2020-08-20 10:01 | PC.NURSE ---
Addendum entered by Gold Albarran 08/20/20 11:41: Correction, Gave Care Team pt's 's phone number, not [facility]. Original Note: [facility] notified with 's phone number and her concerns. State they will call her for additional information.
--- NOTE | 2020-08-20 11:42 | PC.NURSE ---
Spoke with care team and MD Bauer, plan to section 12 patient and relocate to behavioral pod.
--- NOTE | 2020-08-20 12:03 | PC.NURSE ---
Report received. Pt ambulated to pod with steady gait, pt irritable, remaining in behavioral control. Pt aware of plan of care at this time.
--- NOTE | 2020-08-20 13:33 | MHC.CARE ---
Care team met w pt this am for assessment based on his arrival last night for substance abuse and concern of reported aggressive ideation. T/w escorted pt into BH pod for interview for privacy due to his location in the main ED was in a crowded [place]. Pt needed encouragement to wake up and follow t/w into the pod. Pt was assessed and t/w suggested that pt be held while more information and case consultation occur. ED provider was agreeable to 12a due to pts attempt to exit the ED once already. ED provider planned for a psych admission in house however t/w wanted more clinical info and collateral prior to this due to pts overall presentation, context of PCP influence, and pts outright refusal for seeking tx. T/w spoke w pts and also explained how section 35 process works within the community due to pts denial of mental health concerns at this time and denial of aggression. T/w reviewed case with psych DEPLOYMENT TECHNICIAN who had met previously with pt when on a 2 day admission to and was willing to see pt in the ED. Pt had been moved to the pod from the dillon. DEPLOYMENT TECHNICIAN and t/w met w pt. Pt denied SI/HI or aggression and explained that what his is saying was from days ago . Pt stated that he wanted to return home and stated he was safe to do so. DEPLOYMENT TECHNICIAN called pts and pts was agreeable to pick pt up.
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
== END 2020-08-20 13:54 | disposition home or self-care (01) ==
PROVIDERS: Emergency Provider Student in an Organized Health Care Education/Training Program
DX: F19.120 Other psychoactive substance abuse with intoxication, uncomplicated (principal); F32.9 Major depressive disorder, single episode, unspecified; D64.9 Anemia, unspecified; F43.24 Adjustment disorder with disturbance of conduct; F17.290 Nicotine dependence, other tobacco product, uncomplicated
CPT/HCPCS: 36415; 80048; 80307; 80320; 85025; 99283; 99284; 99285

== ENCOUNTER 2021-03-01 23:47 | Emergency (ER) | payer OTHER, SELFPAY ==
[2021-03-01 23:50] VITALS: RESP 20
[2021-03-01 23:52] VITALS: BP 138/82; PULSE 95; RESP 16; O2SAT 95; BMI 32.5
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
[2021-03-01] MEDS: diphenhydrAMINE HCL 50 MG/ML VIAL IM (23:59)
[2021-03-02] VITALS (8 sets, daily range): BP systolic 106–131; BP diastolic 57–75; PULSE 68–109; RESP 15–22; TEMP 36.1; O2SAT 95–100
[2021-03-02] MEDS: Haloperidol Lactate 5 MG/ML VIAL IM
[2021-03-02] MEDS: LORazepam 2 MG/ML VIAL IM
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
--- NOTE | 2021-03-02 04:18 | PC.NURSE ---
this nurse is unable to fill out safety risk screening completely at this time as patient is still asleep. aware.
== END 2021-03-02 06:28 | disposition home or self-care (01) ==
PROVIDERS: Emergency Provider Emergency Medicine
DX: T40.601A Poisoning by unspecified narcotics, accidental (unintentional), initial encounter (principal); T40.1X1A Poisoning by heroin, accidental (unintentional), initial encounter; F33.1 Major depressive disorder, recurrent, moderate; F11.10 Opioid abuse, uncomplicated; Y92.9 Unspecified place or not applicable; Z79.899 Other long term (current) drug therapy; Z71.51 Drug abuse counseling and surveillance of drug abuser
CPT/HCPCS: 96372; 99284; J1200; J2060

== ENCOUNTER 2021-12-28 23:54 | Emergency (ER) | payer OTHER, SELFPAY ==
[2021-12-29 00:10] VITALS: BP 132/85; PULSE 133; RESP 20; TEMP 36.7; O2SAT 96; BMI 30.7
== END 2021-12-29 00:56 | disposition left against medical advice (07) ==
LOC: HO.ED 12-29 00:54
PROVIDERS: Emergency Provider Emergency Medicine; PCP Internal Medicine
DX: R41.82 Altered mental status, unspecified (principal); Z79.01 Long term (current) use of anticoagulants; Z79.899 Other long term (current) drug therapy
CPT/HCPCS: 99281

== ENCOUNTER 2022-11-17 12:19 | Emergency (ER) | payer OTHER, SELFPAY ==
[2022-11-17 13:05] VITALS: BP 105/73; PULSE 64; RESP 16; TEMP 36.6; O2SAT 96; BMI 32.5
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
== END 2022-11-17 13:31 | disposition home or self-care (01) ==
PROVIDERS: Emergency Provider Emergency Medicine
DX: S39.012A Strain of muscle, fascia and tendon of lower back, initial encounter (principal); V43.62XA Car passenger injured in collision with other type car in traffic accident, initial encounter; Y93.89 Activity, other specified; Y92.410 Unspecified street and highway as the place of occurrence of the external cause; Y99.9 Unspecified external cause status
CPT/HCPCS: 99282; 99283